=== PATIENT | male | born 1995 | race Two or more races ===

== ENCOUNTER 2018-07-17 17:02 | Emergency (ER) | payer SELFPAY ==
[2018-07-17 17:48] VITALS: BP 144/87; PULSE 87; TEMP 98.3; BMI 35.9
--- NOTE | 2018-07-17 18:21 | PDOC ---
History of Present Illness - General Chief Complaint: Sore Throat Stated Complaint: THROAT PAIN Time Seen by Provider: 07/17/18 17:56 History Source: Patient Exam Limitations: No Limitations Past History - Travel Traveled outside of the country in the last 30 days: No Close contact w/someone who was outside of country & ill: No - Past Medical History Allergies/Adverse Reactions: Allergies Allergy/AdvReac Type Severity Reaction Status Date / Time No Known Allergies Allergy Verified 07/17/18 17:30 Home Medications: Ambulatory Orders Cyclobenzaprine HCl [Flexeril -] 10 mg PO TID 07/17/18 Ibuprofen 400 mg PO ASDIR 07/17/18 Methylprednisolone [Medrol Dose Prosper] 4 mg PO ASDIR #21 tablet 07/17/18 COPD: No - Suicide/Smoking/Psychosocial Hx Smoking History: Never smoked Have you smoked in the past 12 months: No Information on smoking cessation initiated: No Hx Alcohol Use: No Drug/Substance Use Hx: No Review of Systems - Review of Systems Able to Perform ROS?: Yes Comments:: 07/17/18 19:12 CONSTITUTIONAL: Absent: fever, chills, diaphoresis, generalized weakness, malaise, loss of appetite HEENT: Present: sore throat Absent: rhinorrhea, nasal congestion, throat swelling, difficulty swallowing, mouth swelling, ear pain, eye pain, visual Changes CARDIOVASCULAR: Absent: chest pain, loss of consciousness, palpitations, irregular heart rate, peripheral edema RESPIRATORY: Absent: cough, shortness of breath, dyspnea with exertion, orthopnea, wheezing, stridor, hemoptysis GASTROINTESTINAL: Absent: abdominal pain, abdominal distension, nausea, vomiting, diarrhea, constipation, melena, hematochezia GENITOURINARY: Absent: dysuria, frequency, urgency, hesitancy, hematuria, flank pain, genital pain MUSCULOSKELETAL: Absent: myalgia, arthralgia, joint swelling SKIN: Absent: rash, itching, pallor HEMATOLOGIC/IMMUNOLOGIC: Absent: easy bleeding, easy bruising, lymphadenopathy, frequent infections ENDOCRINE: Absent: unexplained weight gain, unexplained weight loss, heat intolerance, cold intolerance NEUROLOGIC: Absent: headache, focal weakness or paresthesias, dizziness, unsteady gait, seizure, mental status changes, bladder or bowel incontinence PSYCHIATRIC: Absent: anxiety, depression, suicidal or homicidal ideation, hallucinations. Is the patient limited Frisian proficient: No *Physical Exam - Vital Signs Last Vital Signs Temp Pulse Resp BP Pulse Ox 98.3 F 87 16 144/87 100 07/17/18 17:27 07/17/18 17:27 07/17/18 17:27 07/17/18 17:27 07/17/18 17:27 - Physical Exam Comments: 07/17/18 19:12 GENERAL: Well developed, well nourished. Awake and alert. No acute distress. HEENT: Normocephalic, atraumatic. PERRLA, EOMI. No conjunctival pallor. Sclera are non- icteric. Moist mucous membranes. Oropharynx is clear. Uvula is midline, erythematous and edematous. NECK: Supple. Full ROM. No JVD. Carotid pulses 2+ and symmetric, without bruits. No thyromegaly. No lymphadenopathy. CARDIOVASCULAR: Regular rate and rhythm. No murmurs, rubs, or gallops. Distal pulses are 2+ and symmetric. PULMONARY: No evidence of respiratory distress. Lungs clear to auscultation bilaterally. No wheezing, rales or rhonchi. ABDOMINAL: Soft. Non-tender. Non-distended. No rebound or guarding. No organomegaly. Normoactive bowel sounds. MUSCULOSKELETAL Normal range of motion at all joints. No bony deformities or tenderness. No CVA tenderness. EXTREMITIES: No cyanosis. No clubbing. No edema. No calf tenderness. SKIN: Warm and dry. Normal capillary refill. No rashes. No jaundice. NEUROLOGICAL: Alert, awake, appropriate. Cranial nerves 2-12 intact. No deficits to light touch and temperature in face, upper extremities and lower extremities. No motor deficits in the in face, upper extremities and lower extremities. Normoreflexic in the upper and lower extremities. Normal speech. Toes are down- going bilaterally. Gait is normal without ataxia. PSYCHIATRIC: Cooperative. Good eye contact. Appropriate mood and affect. Medical Decision Making - Medical Decision Making 07/17/18 19:41 The patient is a 23-year-old male with no past medical history who presents to the ER with 2 days of sore throat. The patient states that he was seen yesterday at [facility] however the edges give him ibuprofen and sent him home. He states that hurts to swallow. Denies fevers, chills, nausea, vomiting, diarrhea and difficulty breathing. A/P: Sore throat On exam patient with clinical uvulitis. Rapid strep is negative. Decadron given with relief of symptoms. Discharge home with symptomatic relief. I discussed the physical exam findings, ancillary test results and final diagnoses with the patient. I answered all of the patient's questions. The patient was satisfied with the care received and felt comfortable with the discharge plan and treatment plan. The Patient agrees to follow up with the primary care physician/specialist within 24-72 hours. Return precautions were given. *DC/Admit/Observation/Transfer Diagnosis at time of Disposition: Uvulitis - Discharge Dispostion Disposition: HOME Condition at time of disposition: Stable Decision to Admit order: No - Prescriptions Prescriptions: Methylprednisolone [Medrol Dose Prosper] 4 mg PO ASDIR #21 tablet - Referrals Referrals: Jerrod Freedman MD [Staff Physician] - - Patient Instructions Printed Discharge Instructions: DI for Uvulitis Additional Instructions: You have a sore throat caused by uvulitis (inflammation of the uvula) Rapid strep testing was negative today. Take the medrol dose pack as prescribed You may take Motrin 600 mg every 6 hours as needed for pain. Please do warm water gargles and cough drops to help with your pain. Change your toothbrush when you started feeling better. Follow-up with your primary care doctor. Return to the ER for fever, difficulty breathing, difficulty swallowing, or if you have any changes in your symptoms. Tiene dolor de garganta causado por uvulitis (inflamacin de la vula) La prueba rpida de estreptococos fue negativa hoy. [place] el paquete de dosis de medrol segn lo prescrito Puede samina Motrin 600 mg cada 6 horas segn sea necesario para el dolor. Por favor, duncan grgaras de agua tibia y gotas para la tos para aliviar gaston dolor. Cambie gaston cepillo de dientes cuando empiece a sentirse mejor. Seguimiento con gaston mdico de atencin primaria. Regrese a la lu de emergencias para laura si tiene fiebre, dificultad para respirar, dificultad para tragar o si tiene algn cambio en sabine sntomas. Print Language: SPA - Post Discharge Activity Forms/Work/School Notes: Back to Work
[2018-07-17] MEDS ORDERED: DEXAMETHASONE LIQUID 0.5 MG/5 ML 240 ML BULK BOTTLE PO ONE (18:22)
[2018-07-17] MEDS ORDERED: DEXAMETHASONE SOD PHOSPHATE 10 MG/1 ML VIAL ONE (18:35)
== END 2018-07-17 19:17 | disposition home or self-care (01) ==
LOC: JERFT 17:02
DX: K12.2 Cellulitis and abscess of mouth (principal)
CPT/HCPCS: 87070; 87880; 99281-25

== ENCOUNTER 2018-10-25 00:19 | Emergency (ER) | payer SELFPAY ==
[2018-10-25 01:26] VITALS: BP 110/74; PULSE 75; TEMP 98.4; BMI 35.4
== END 2018-10-25 01:30 | disposition left against medical advice (07) ==
LOC: JER 00:19
DX: Z53.21 Procedure and treatment not carried out due to patient leaving prior to being seen by health care provider (principal)
CPT/HCPCS: 99281-25

== ENCOUNTER 2019-05-14 09:38 | Emergency (ER) | payer BC ==
[2019-05-14 09:44] VITALS: TEMP 99.7; BMI 41.1
[2019-05-14] MEDS ORDERED: LACTATED RINGERS SOLUTION 1,000 ML IV STA (10:24)
[2019-05-14] MEDS ORDERED: FAMOTIDINE 20 MG/50 ML IVPB 20 MG/50 ML MG IVPB ONE (10:24)
[2019-05-14] MEDS ORDERED: ACETAMINOPHEN 1000 MG/100 ML VIAL (NON FORMULARY) IVPB ONE (10:24)
[2019-05-14] MEDS ORDERED: ACETAMINOPHEN INJECTION 100 ML IVPB ONE (10:37)
[2019-05-14] MEDS ORDERED: MAG HYDROX/AL HYDROX/SIMETH 30 ML UNIT-DOSE CUP PO ONE (10:44)
--- NOTE | 2019-05-14 10:44 | PDOC ---
History of Present Illness - General History Source: Patient Exam Limitations: Clinical Condition - History of Present Illness Initial Comments: 05/14/19 10:39 Patient with no significant past medical history present with complaint of 1 day history of diarrhea and cramping diffuse abdominal pain since last night and worsening today. Patient also report body aches since yesterday. Denies fever but report tactile chills. Denies nausea, vomiting, cough, congestion, chest pain, shortness of breath or weakness. Denies any other symptoms Is this a multiple visit Asthma Patient?: No <Dominik Duckworth - Last Filed: 05/14/19 12:15> <Candace Madison - Last Filed: 05/15/19 10:19> - General Chief Complaint: Diarrhea Stated Complaint: ABD PAIN / DIARRHEA Time Seen by Provider: 05/14/19 10:08 Past History - Past Medical History COPD: No - Immunization History Immunization Up to Date: No - Psycho Social/Smoking Cessation Hx Smoking History: Never smoked Have you smoked in the past 12 months: No Information on smoking cessation initiated: No Hx Alcohol Use: No Drug/Substance Use Hx: No <Dominik Duckworth - Last Filed: 05/14/19 12:15> <Candace Madison - Last Filed: 05/15/19 10:19> - Past Medical History Allergies/Adverse Reactions: Allergies Allergy/AdvReac Type Severity Reaction Status Date / Time No Known Allergies Allergy Verified 10/25/18 01:26 Home Medications: Ambulatory Orders Famotidine [Pepcid -] 40 mg PO DAILY #7 tablet 05/14/19 Loperamide HCl [Diamode] 2 mg PO Q8H PRN #12 tablet 05/14/19 Mag Hydrox/Aluminum Hyd/Simeth [Maalox Advanced Suspension] 30 ml PO Q8H PRN # 200 ml 05/14/19 Review of Systems - Review of Systems Able to Perform ROS?: Yes Is the patient limited Citizen Of [place] proficient: No Constitutional: Yes: Chills, Malaise. No: Fever HEENTM: Yes: Symptoms Reported, See HPI, Throat Pain. No: Eye Pain, Blurred Vision, Tearing, Recent change in vision, Double Vision, Cataracts, Ear Pain, Ocular Prothesis, Ear Discharge, Nose Pain, Nose Congestion, Tinnitus, Nose Bleeding, Hearing Loss, Throat Swelling, Mouth Pain, Dental Problems, Difficulty Swallowing, Mouth Swelling, Other Respiratory: No: Symptoms reported, See HPI, Cough, Orthopnea, Shortness of Breath, SOB with Exertion, SOB at Rest, Stridor, Wheezing, Productive cough, Hemoptysis, Other Cardiac (ROS): No: Symptoms Reported, See HPI, Chest Pain, Edema, Irregular Heart Rate, Lightheadedness, Palpitations, Syncope, Chest Tightness, Other ABD/GI: Yes: Diarrhea, Abdominal cramping. No: Symptoms Reported, See HPI, Constipated, Nausea, Vomiting : No: Burning, Discharge, Frequency, Urgency All Other Systems: Reviewed and Negative <Dominik Duckworth - Last Filed: 05/14/19 12:15> *Physical Exam - Vital Signs Last Vital Signs Temp Pulse Resp BP Pulse Ox 99.7 F H 119 H 18 129/74 100 05/14/19 09:42 05/14/19 09:42 05/14/19 09:42 05/14/19 09:42 05/14/19 09:42 - Physical Exam 05/14/19 10:45 GENERAL: Well developed, well nourished. Awake and alert. No acute distress. HEENT: Normocephalic, atraumatic. PERRLA, EOMI. No conjunctival pallor. Sclera are non-icteric. Moist mucous membranes. Oropharynx is clear. NECK: Supple. Full ROM. CARDIOVASCULAR: Regular rate and rhythm. No murmurs, rubs, or gallops. Distal pulses are 2+ and symmetric. PULMONARY: No evidence of respiratory distress. Lungs clear to auscultation bilaterally. No wheezing, rales or rhonchi. ABDOMINAL: Soft. Mild diffuse subjective abdominal tenderness. Non-distended. No rebound or guarding. No organomegaly. Normoactive bowel sounds. MUSCULOSKELETAL Normal range of motion at all joints. SKIN: Warm and dry. Normal capillary refill. No rashes. No jaundice. No cyanosis NEUROLOGICAL: Alert, awake, appropriate. Gait is normal without ataxia. PSYCHIATRIC: Cooperative. Good eye contact. Appropriate mood General Appearance: Yes: Nourished, Appropriately Dressed. No: Apparent Distress <Dominik Duckworth - Last Filed: 05/14/19 12:15> - Vital Signs Last Vital Signs Temp Pulse Resp BP Pulse Ox 99.7 F H 104 H 17 126/77 100 05/14/19 09:42 05/14/19 12:25 05/14/19 12:25 05/14/19 12:25 05/14/19 09:42 <Candace Madison - Last Filed: 05/15/19 10:19> ED Treatment Course - LABORATORY CBC & Chemistry Diagram: 05/14/19 10:55 05/14/19 10:55 <Dominik Duckworth - Last Filed: 05/14/19 12:15> - LABORATORY CBC & Chemistry Diagram: 05/14/19 10:55 05/14/19 10:55 - ADDITIONAL ORDERS Additional order review: 05/14/19 12:19 Throat Culture - Final Throat NO BETA HEMOLYTIC STREPTOCOCCI ISOLATED 05/14/19 10:55 RBC 5.14 MCV 88.4 MCHC 33.7 RDW 14.1 MPV 8.2 Neutrophils % 84.4 H Lymphocytes % 10.1 Monocytes % 5.0 Eosinophils % 0.3 Basophils % 0.2 - Medications Given in the ED: ED Medications Discontinued Medications Generic Name Dose Route Start Last Admin Trade Name Naveed PRN Reason Stop Dose Admin Acetaminophen 1,000 mg 05/14/19 10:24 05/14/19 10:57 Ofirmev Injection - IVPB 05/14/19 10:25 1,000 mg ONCE ONE Administration Al Hydroxide/Mg Hydroxide 30 ml 05/14/19 10:44 05/14/19 11:11 Mylanta Oral Suspension - PO 05/14/19 10:45 30 ml ONCE ONE Administration Lactated Ringer's 1,000 mls @ 1,000 mls/hr 05/14/19 10:24 05/14/19 10:57 Lactated Ringers Solution IV 05/14/19 11:23 1,000 mls/hr ONCE STA Administration Famotidine/Sodium Chloride 20 mg in 50 mls @ 100 mls/hr 05/14/19 10:24 10:58 Pepcid 20 Mg Premixed Ivpb - IVPB 05/14/19 10:53 100 mls/hr ONCE ONE Administration <Candace Madison - Last Filed: 05/15/19 10:19> Medical Decision Making - Medical Decision Making 05/14/19 10:40 Patient with no significant past medical history present with complaint of 1 day history of diarrhea and cramping diffuse abdominal pain since last night and worsening today. Patient also report body aches since yesterday. Denies fever but report tactile chills. Denies nausea, vomiting, cough, congestion, chest pain, shortness of breath or weakness. Denies any other symptoms Clinical exam significant for diffuse subjective abdominal tenderness without guarding or rebound. Otherwise normal exam. Symptoms likely viral gastroenteritis versus less likely bacterial gastroenteritis or cholecystitis. CBC, CMP and lipase were ordered. IV hydration with 1 L normal saline ordered and Pepcid 20 mg IV and Tylenol 1 g IV ordered for abdominal pain. Treat based on lab results 05/14/19 12:15 cbc and chemistry labs unremarkable. Patient report feeling better after meds and IVF. Patient symptoms likely viral gastroenteritis and stable for outpatient management on conservative tx with increased fluids, pepcid and maalox with PCP f/u <Dominik Duckworth - Last Filed: 05/14/19 12:15> - Medical Decision Making I reviewed the case with the mid-level practitioner and agree with the mid- level practitioner's assessment, diagnosis and disposition. <Candace Madison - Last Filed: 05/15/19 10:19> Discharge - Discharge Information Problems reviewed: Yes - Admission No <Dominik Duckworth - Last Filed: 05/14/19 12:15> <Candace Madison - Last Filed: 05/15/19 10:19> - Discharge Information Clinical Impression/Diagnosis: Gastroenteritis Condition: Stable Disposition: HOME - Additional Discharge Information Prescriptions: Famotidine [Pepcid -] 40 mg PO DAILY #7 tablet Loperamide HCl [Diamode] 2 mg PO Q8H PRN #12 tablet PRN Reason: diarrhea Mag Hydrox/Aluminum Hyd/Simeth [Maalox Advanced Suspension] 30 ml PO Q8H PRN # 200 ml PRN Reason: abdominal discomfort - Follow up/Referral Referrals: [facility] [place] [Provider Group] - Patient Discharge Instructions Patient Printed Discharge Instructions: DI for Viral Gastroenteritis -- Adult Additional Instructions: Your blood work is normal. Your symptoms is likely viral infection. Take prescribed medications as prescribed for symptoms. Increase fluid intake. Follow -up with referred primary care - Post Discharge Activity Work/Back to School Note: Back to Work
[2019-05-14 11:07] LABS: BASO % 0.2 % (0-2.0); EOS % 0.3 % (0-4.5); HEMATOCRIT 45.4 % (35.4-49); HEMOGLOBIN 15.3 GM/dL (11.7-16.9); LYMPH % 10.1 % (8-40); MCH 29.8 pg (25.7-33.7); MCHC 33.7 g/dl (32.0-35.9); MEAN CELL VOLUME 88.4 fl (80-96); MEAN PLT VOLUME 8.2 fl (7.5-11.1); NEUT % 84.4 % (42.8-82.8); PLATELET COUNT 198 K/MM3 (134-434); RBC 5.14 M/mm3 (4.00-5.60); RDW 14.1 % (11.9-15.9); WHITE BLOOD COUNT 8.9 K/mm3 (4.0-10.0)
[2019-05-14] MEDS ORDERED: MAG HYDROX/AL HYDROX/SIMETH 30 ML UNIT-DOSE CUP ONE (11:09)
[2019-05-14 11:10] LABS: URINE APPEARANCE CLEAR; URINE BILIRUBIN NEGATIVE (NEGATIVE); URINE COLOR YELLOW; URINE GLUCOSE (UA) NEGATIVE (NEGATIVE); URINE KETONE NEGATIVE (NEGATIVE); URINE LEUK ESTERASE NEGATIVE (NEGATIVE); URINE NITRITE NEGATIVE (NEGATIVE); URINE PROTEIN NEGATIVE (NEGATIVE)
[2019-05-14 11:27] LABS: ALBUMIN 4.2 g/dl (3.4-5.0); BILIRUBIN,TOTAL 0.9 mg/dL (0.2-1); BLOOD UREA NITROGEN 16.3 mg/dL (7-18); CALCIUM 9.3 mg/dL (8.5-10.1); CREATININE 1.1 mg/dL (0.55-1.3); POTASSIUM 3.8 mmol/L (3.5-5.1); TOT PROT 7.8 g/dl (6.4-8.2)
[2019-05-14 12:29] VITALS: BP 126/77; PULSE 104
== END 2019-05-14 12:26 | disposition home or self-care (01) ==
LOC: JER 09:38
PROC: 3E033GC Introduction of Other Therapeutic Substance into Peripheral Vein, Percutaneous Approach (ICD-10-PCS; principal; 2019-05-14)
PROC: 3E033NZ Introduction of Analgesics, Hypnotics, Sedatives into Peripheral Vein, Percutaneous Approach (ICD-10-PCS; 2019-05-14)
DX: K52.9 Noninfective gastroenteritis and colitis, unspecified (principal)
CPT/HCPCS: 36415; 80053; 81003; 83690; 85025; 87070; 87880; 99282-25; J0131

== ENCOUNTER 2019-06-20 07:58 | Emergency (ER) | payer BC ==
[2019-06-20 08:25] VITALS: BP 146/74; PULSE 105; TEMP 97.8; BMI 36.0
[2019-06-20] MEDS ORDERED: DIPHTH,PERTUSS(ACELL),TET 0.5 ML DISP.SYRIN IM ONE ×2 (08:28→08:31)
[2019-06-20] MEDS ORDERED: IBUPROFEN 600 MG TABLET (FP) PO ONE ×2 (08:28→08:31)
--- NOTE | 2019-06-20 08:35 | PDOC ---
History of Present Illness - General Chief Complaint: Injury Stated Complaint: HAND INJURY Time Seen by Provider: 06/20/19 08:14 History Source: Patient Exam Limitations: No Limitations - History of Present Illness Initial Comments: 06/20/19 08:30 24-year-old male denies past medical history, [id number] presents complaining of left hand and bilateral forearm pain status post slip and fall in a bathroom at approximately 5 AM today. States he slipped on wet floor and fell onto a glass table which shattered. Denies head strike, LOC, neck pain, chest pain, abdominal pain or any other injuries. Unknown tetanus status. ROS: as above PE: GENERAL: well-appearing, NAD HEAD: NCAT EYES: Pupils equal, round and reactive to light, sclera anicteric, conjunctiva clear ENT: pharynx: no erythema, no exudate, uvula midline NECK: supple CHEST: nontender RESP: clear, no w/r/r CARDIO: rrr, no m/g/r ABD: +BS, soft, nontender, non distended BACK: no midline spinal ttp, no CVAT EXTREMITIES: Swelling to bilateral forearm with abrasions, no bony tenderness to palpation, no ecchymosis noted, normal range of motion, no edema NEUROLOGICAL: Normal speech, normal gait, 5/5 strength and sensation of all extremities SKIN: Approximately 1.5 cm superficial laceration to second MCP of left hand, no active bleeding, positive radial pulse, warm, Dry Is this a multiple visit Asthma Patient?: No Past History - Past Medical History Allergies/Adverse Reactions: Allergies Allergy/AdvReac Type Severity Reaction Status Date / Time No Known Allergies Allergy Verified 06/20/19 08:10 Home Medications: Ambulatory Orders NK [No Known Home Medication] 06/20/19 COPD: No - Immunization History Immunization Up to Date: No - Psycho Social/Smoking Cessation Hx Smoking History: Never smoked Have you smoked in the past 12 months: No Information on smoking cessation initiated: No Hx Alcohol Use: No Drug/Substance Use Hx: No *Physical Exam - Vital Signs Last Vital Signs Temp Pulse Resp BP Pulse Ox 97.8 F 105 H 17 146/74 99 06/20/19 08:10 06/20/19 08:10 06/20/19 08:10 06/20/19 08:10 06/20/19 08:10 ED Treatment Course - RADIOLOGY Radiology Studies Ordered: Category Date Time Status FOREARM- LEFT [RAD] Stat Radiology 06/20/19 08:27 Ordered FOREARM- RIGHT [RAD] Stat Radiology 06/20/19 08:27 Ordered HAND- LEFT [RAD] Stat Radiology 06/20/19 08:27 Ordered Medical Decision Making - Medical Decision Making 06/20/19 08:34 24-year-old male with lateral forearm pain and laceration to left 2nd MCP status post slip and fall in the bathroom at approximately 5 AM today. Unknown tetanus status. Tetanus X-rays of bilateral forearms and left hand P.o. ibuprofen Laceration repaired by Dr. Hogue 06/20/19 10:15 Discharge - Discharge Information Problems reviewed: Yes Clinical Impression/Diagnosis: Laceration Condition: Stable Disposition: HOME - Admission No - Follow up/Referral - Patient Discharge Instructions Additional Instructions: Keep area clean and dry Apply bacitracin twice a day Return to ER or follow-up with your doctor in 7 days for suture removal If you develop fever, chills, redness, swelling, increasing pain return to ED - Post Discharge Activity Work/Back to School Note: Back to Work
== END 2019-06-20 10:20 | disposition home or self-care (01) ==
LOC: JER 07:58 → JERFT 07:58
PROC: 3E0234Z Introduction of Serum, Toxoid and Vaccine into Muscle, Percutaneous Approach (ICD-10-PCS; principal; 2019-06-20)
PROC: 0HQGXZZ Repair Left Hand Skin, External Approach (ICD-10-PCS; 2019-06-20)
DX: S61.412A Laceration without foreign body of left hand, initial encounter (principal); W01.110A Fall on same level from slipping, tripping and stumbling with subsequent striking against sharp glass, initial encounter; Y93.89 Activity, other specified; Y92.031 Bathroom in apartment as the place of occurrence of the external cause; Y99.8 Other external cause status
CPT/HCPCS: 73090-TC-LT-FY; 73090-TC-RT-FY; 73130-TC-LT-FY; 90715; 99283-25

== ENCOUNTER 2019-06-27 13:21 | Emergency (ER) | payer BC ==
[2019-06-27 13:54] VITALS: BP 119/74; PULSE 71; TEMP 97.2; BMI 36.0
--- NOTE | 2019-06-27 14:05 | PDOC ---
Suture Removal/Wound Check HPI - History of Present Illness Chief Complaint: Suture/Staple Removal(Here) Stated Complaint: SUTURE REMOVAL Time Seen by Provider: 06/27/19 13:56 History Source: Yes: Patient Exam Limitations: Yes: No Limitations Date of Last ED visit: 06/20/19 - Previous ED Treatment Type of procedure performed on last visit: Yes: Laceration Repair Tetanus Immunization: Yes: Up to Date Antibiotics Prescribed: No - Onset of Previous Treatment Option to Enter number here: 1 Select one - (for the option above): Weeks Timing/Duration/Severity of Onset: reports: Prior to presentation Past History - Travel Traveled outside of the country in the last 30 days: No Close contact w/someone who was outside of country & ill: No - Past Medical History Allergies/Adverse Reactions: Allergies Allergy/AdvReac Type Severity Reaction Status Date / Time No Known Allergies Allergy Verified 06/20/19 08:10 Home Medications: Ambulatory Orders NK [No Known Home Medication] 06/20/19 COPD: No - Immunization History Immunization Up to Date: No - Psycho Social/Smoking Cessation Hx Smoking History: Never smoked Have you smoked in the past 12 months: No Information on smoking cessation initiated: No Hx Alcohol Use: No Drug/Substance Use Hx: No Suture Removal/Wound Check PE - Physical Exam Laceration/Wound Check Symptoms: reports: None Current Severity Level: None Maximum Severity Level: None Pain Localization: None Location of Laceration/Wound: right: Hand Pain Radiation: None *Review of Systems - Review of Systems Able to Perform ROS?: Yes Constitutional: No: Chills, Fever HEENTM: No: Nose Pain, Throat Pain, Throat Swelling Respiratory: No: Orthopnea, Shortness of Breath Cardiac (ROS): No: Lightheadedness, Palpitations : No: Burning, Dysuria Musculoskeletal: No: Joint Pain, Muscle Pain, Muscle Weakness Integumentary: No: Bruising, Dryness, Flushing Neurological: No: Numbness, Paresthesia Psychiatric: No: Stressors Endocrine: No: Increased Hunger *Physical Exam - Vital Signs Last Vital Signs Temp Pulse Resp BP Pulse Ox 97.2 F L 71 16 119/74 100 06/27/19 13:50 06/27/19 13:50 06/27/19 13:50 06/27/19 13:50 06/27/19 13:50 - Physical Exam General Appearance: Yes: Nourished, Appropriately Dressed HEENT: positive: TMs Normal, Pharynx Normal Neck: positive: Supple. negative: Lymphadenopathy (R), Lymphadenopathy (L) Respiratory/Chest: positive: Lungs Clear Cardiovascular: positive: Regular Rhythm, Regular Rate Extremity: positive: Normal Capillary Refill Neurologic: positive: enterprise architect II-XII NML intact, Fully Oriented, Alert Medical Decision Making - Medical Decision Making 06/27/19 14:03 24 year old male presents with no significant medical history, surgical history of lip surgery. Patient here for suture removal. Denies fever or chills Discharge - Discharge Information Problems reviewed: Yes Clinical Impression/Diagnosis: Visit for suture removal Condition: Good Disposition: HOME - Admission No - Follow up/Referral - Patient Discharge Instructions Patient Printed Discharge Instructions: DI for Suture Removal - Post Discharge Activity Work/Back to School Note: Back to Work
== END 2019-06-27 14:16 | disposition home or self-care (01) ==
LOC: JERFT 13:21
DX: Z48.817 Encounter for surgical aftercare following surgery on the skin and subcutaneous tissue (principal); Z48.02 Encounter for removal of sutures
CPT/HCPCS: 99281-25

== ENCOUNTER 2020-06-19 15:31 | Emergency (ER) | payer BC ==
[2020-06-19 15:40] VITALS: BP 134/85; PULSE 100; TEMP 98; BMI 38.4
== END 2020-06-19 18:30 | disposition home or self-care (01) ==
LOC: JER 15:31
DX: K62.5 Hemorrhage of anus and rectum (principal); K64.8 Other hemorrhoids; K59.00 Constipation, unspecified
CPT/HCPCS: 99283-25

== ENCOUNTER 2020-09-19 09:27 | Emergency (ER) | payer BC ==
[2020-09-19 09:34] VITALS: BP 113/74; PULSE 79; TEMP 98.5; BMI 36.0
== END 2020-09-19 11:01 | disposition home or self-care (01) ==
LOC: JERFT 09:27
PROC: 0H9AXZZ Drainage of Inguinal Skin, External Approach (ICD-10-PCS; principal; 2020-09-19)
DX: L02.214 Cutaneous abscess of groin (principal)
CPT/HCPCS: 99282-25

== ENCOUNTER 2020-12-26 09:10 | Emergency (ER) | payer BC ==
[2020-12-26 09:28] VITALS: BP 135/84; PULSE 70; TEMP 98.4; BMI 38.7
== END 2020-12-26 10:53 | disposition home or self-care (01) ==
LOC: JER 09:10
PROC: 0H9KXZZ Drainage of Right Lower Leg Skin, External Approach (ICD-10-PCS; principal; 2020-12-26)
DX: L02.415 Cutaneous abscess of right lower limb (principal)
CPT/HCPCS: 99282-25

== ENCOUNTER 2021-09-22 18:40 | Emergency (ER) | payer BC, OTHER ==
[2021-09-22 18:44] VITALS: BP 106/70; PULSE 84; TEMP 98; BMI 36.0
[2021-09-22] MEDS ORDERED: FAMOTIDINE 20 MG/50 ML IVPB 20 MG/50 ML MG IVPB ONE ×2 (20:23→20:42)
[2021-09-22] MEDS ORDERED: MAG HYDROX/AL HYDROX/SIMETH 30 ML UNIT-DOSE CUP PO ONE (20:23)
[2021-09-22] MEDS ORDERED: SUCRALFATE 1 GM/10 ML UNIT DOSE CUPS PO ONE (20:24)
[2021-09-22] MEDS ORDERED: MAG HYDROX/AL HYDROX/SIMETH 30 ML UNIT-DOSE CUP ONE (20:42)
[2021-09-22 21:19] LABS: BASO % 0.2 % (0-2.0); EOS % 0.1 % (0-4.5); HEMATOCRIT 42.7 % (35.4-49); HEMOGLOBIN 14.6 GM/dL (11.7-16.9); LYMPH % 17.6 % (8-40); MCH 30.1 pg (25.7-33.7); MCHC 34.2 g/dl (32.0-35.9); MEAN CELL VOLUME 88.1 fl (80-96); MEAN PLT VOLUME 8.7 fl (7.5-11.1); MONO % 6.5 % (3.8-10.2); NEUT % 75.6 % (42.8-82.8); PLATELET COUNT 221 10^3/uL (134-434); RBC 4.85 M/mm3 (4.00-5.60); RDW 14.2 % (11.9-15.9); WHITE BLOOD COUNT 10.1 K/mm3 (4.0-10.0)
[2021-09-22 21:46] LABS: ALBUMIN 4.1 g/dl (3.4-5.0); BLOOD UREA NITROGEN 15.5 mg/dL (7-18)
[2021-09-22 21:51] LABS: BILIRUBIN,TOTAL 0.7 mg/dL (0.2-1); TOT PROT 7.6 g/dl (6.4-8.2)
== END 2021-09-23 00:17 | disposition home or self-care (01) ==
LOC: JER 18:40
PROC: 3E033GC Introduction of Other Therapeutic Substance into Peripheral Vein, Percutaneous Approach (ICD-10-PCS; principal; 2021-09-22)
DX: R10.13 Epigastric pain (principal); R74.01 Elevation of levels of liver transaminase levels; R16.0 Hepatomegaly, not elsewhere classified
CPT/HCPCS: 36415; 76705-TC; 80053; 83690; 85025; 93005; 93010; 99285-25

== ENCOUNTER 2021-09-24 10:02 | Inpatient (IN) | payer BC ==
[2021-09-24] MEDS ORDERED: MAG HYDROX/AL HYDROX/SIMETH 30 ML UNIT-DOSE CUP PO ONE (10:57)
[2021-09-24] MEDS ORDERED: PANTOPRAZOLE SODIUM 40 MG VIAL IVPUSH ONE (10:57)
[2021-09-24] MEDS ORDERED: morphine CARPU-JECT 2 MG/1 ML DISP.SYRIN IVPUSH ONE (10:57)
[2021-09-24] MEDS ORDERED: ONDANSETRON 4 MG/2 ML VIAL IVPUSH ONE (10:59)
[2021-09-24] MEDS ORDERED: MAG HYDROX/AL HYDROX/SIMETH 30 ML UNIT-DOSE CUP ONE (11:23)
[2021-09-24] MEDS ORDERED: ONDANSETRON 4 MG/2 ML VIAL ONE (11:23)
[2021-09-24] MEDS ORDERED: PANTOPRAZOLE SODIUM 40 MG/100 ML BAG IVPB ONE (11:28)
[2021-09-24 12:49] LABS: BASO % 0.5 % (0-2.0); EOS % 1.5 % (0-4.5); HEMATOCRIT 42.8 % (35.4-49); HEMOGLOBIN 14.4 GM/dL (11.7-16.9); MCH 29.9 pg (25.7-33.7); MCHC 33.5 g/dl (32.0-35.9); PLATELET COUNT 222 10^3/uL (134-434); RBC 4.81 M/mm3 (4.00-5.60); RDW 14.3 % (11.9-15.9)
[2021-09-24 13:03] LABS: ALBUMIN 3.8 g/dl (3.4-5.0); BLOOD UREA NITROGEN 15.3 mg/dL (7-18); CALCIUM 8.8 mg/dL (8.5-10.1)
[2021-09-24 13:07] LABS: BILIRUBIN,TOTAL 0.5 mg/dL (0.2-1)
[2021-09-24 13:08] LABS: TOT PROT 7.3 g/dl (6.4-8.2)
[2021-09-24] MEDS ORDERED: SODIUM CHLORIDE 1,000 ML IV SCH (14:45)
[2021-09-24 18:29] VITALS: BMI 38.4
[2021-09-24] MEDS: HEPARIN NA (PORCINE) 5,000 UNITS/ML 1ML VIAL SQ SCH (21:11)
[2021-09-25] MEDS: HEPARIN NA (PORCINE) 5,000 UNITS/ML 1ML VIAL SQ SCH ×3 (06:13→22:24)
[2021-09-25 09:23] LABS: BASO % 0.4 % (0-2.0); EOS % 1.1 % (0-4.5); HEMATOCRIT 40.3 % (35.4-49); HEMOGLOBIN 13.6 GM/dL (11.7-16.9); LYMPH % 40.7 % (8-40); MCH 29.7 pg (25.7-33.7); MCHC 33.7 g/dl (32.0-35.9); MEAN PLT VOLUME 8.8 fl (7.5-11.1); MONO % 6.7 % (3.8-10.2); NEUT % 51.1 % (42.8-82.8); PLATELET COUNT 197 10^3/uL (134-434); RBC 4.58 M/mm3 (4.00-5.60)
[2021-09-25 09:25] LABS: ACTIVATED PTT 34.7 SECONDS (25.2-36.5); INR 1.14 (0.83-1.09); PROTHROMBIN TIME (PATIENT) 13.1 SEC (9.7-13.0)
[2021-09-25 09:59] LABS: CALCIUM 8.6 mg/dL (8.5-10.1)
[2021-09-25 10:00] LABS: ALBUMIN 3.4 g/dl (3.4-5.0); BLOOD UREA NITROGEN 13.1 mg/dL (7-18); MAGNESIUM 2.1 mg/dL (1.8-2.4)
[2021-09-25 10:03] LABS: CREATININE 0.9 mg/dL (0.55-1.3); PHOSPHOROUS 3.3 mg/dL (2.5-4.9)
[2021-09-25 10:04] LABS: BILIRUBIN,TOTAL 0.8 mg/dL (0.2-1); TOT PROT 6.4 g/dl (6.4-8.2)
[2021-09-25] MEDS ORDERED: KETOROLAC TROMETHAMINE 30 MG/1 ML VIAL ONE (12:42)
[2021-09-25] MEDS ORDERED: SUCCINYLCHOLINE CHLORIDE 200 MG/10 ML SYRINGE ONE (12:42)
[2021-09-25] MEDS ORDERED: ONDANSETRON 4 MG/2 ML VIAL ONE (12:42)
[2021-09-25] MEDS ORDERED: PROPOFOL 20 ML ONE (12:42)
[2021-09-25] MEDS ORDERED: LIDOCAINE HCL 2% 100 MG/5 ML DISP.SYRIN ONE (12:42)
[2021-09-25] MEDS ORDERED: DEXAMETHASONE SOD PHOSPHATE 4 MG/1 ML VIAL ONE (12:42)
[2021-09-25] MEDS ORDERED: ROCURONIUM BROMIDE 50 MG/5 ML SYRINGE ONE (12:43)
[2021-09-25] MEDS ORDERED: MIDAZOLAM HCL 2 MG/2 ML SINGLE DOSE VIAL ONE (12:43)
[2021-09-25] MEDS ORDERED: BUPIVACAINE HCL/PF 0.25% (2.5MG/ML) 10 ML VIAL ONE (13:03)
[2021-09-25] MEDS ORDERED: ceFAZolin SODIUM 1 GM VIAL ONE (14:08)
[2021-09-25] MEDS ORDERED: ceFAZolin SODIUM 1 GM VIAL IVPB ONE (14:10)
[2021-09-25] MEDS ORDERED: BUPIVACAINE HCL/PF 0.25% (2.5MG/ML) 10 ML VIAL IJ ONE (14:32)
[2021-09-25] MEDS ORDERED: PROMETHAZINE HCL 25 MG/1 ML VIAL IVPUSH PRN (15:25)
[2021-09-25] MEDS ORDERED: ONDANSETRON 4 MG/2 ML VIAL IVPUSH PRN ×2 (15:25→15:47)
[2021-09-25] MEDS ORDERED: oxyCODONE HCL 5 MG TABLET PO PRN ×2 (15:25)
[2021-09-25] MEDS ORDERED: HYDROmorphone HCl 2 MG/ML VIAL IVPUSH PRN ×2 (15:26)
[2021-09-25] MEDS ORDERED: LACTATED RINGERS SOLUTION 1,000 ML IV SCH (15:30)
[2021-09-25] MEDS ORDERED: FENTANYL CITRATE/PF 50 MCG/ML VIAL ONE ×4 (15:30→16:30)
[2021-09-25] MEDS: LACTATED RINGERS SOLUTION 1,000 ML IV SCH (17:05)
[2021-09-25] MEDS: ACETAMINOPHEN 500 MG TABLET (FP) PO SCH (18:47)
[2021-09-25] MEDS: oxyCODONE HCL 5 MG TABLET PO PRN (20:46)
[2021-09-25] MEDS ORDERED: KETOROLAC TROMETHAMINE 30 MG/1 ML VIAL IVPUSH PRN (23:00)
[2021-09-26] MEDS: ACETAMINOPHEN 500 MG TABLET (FP) PO SCH ×3 (00:08→13:30)
[2021-09-26] MEDS: HEPARIN NA (PORCINE) 5,000 UNITS/ML 1ML VIAL SQ SCH ×2 (05:13→15:00)
[2021-09-26] MEDS: oxyCODONE HCL 5 MG TABLET PO PRN ×2 (05:22→16:16)
[2021-09-26 09:48] LABS: HEMATOCRIT 40.6 % (35.4-49); HEMOGLOBIN 13.8 GM/dL (11.7-16.9); MCH 29.9 pg (25.7-33.7); PLATELET COUNT 210 10^3/uL (134-434); RBC 4.62 M/mm3 (4.00-5.60); RDW 13.8 % (11.9-15.9); WHITE BLOOD COUNT 8.7 K/mm3 (4.0-10.0)
[2021-09-26 09:53] LABS: BLOOD UREA NITROGEN 9.4 mg/dL (7-18); CALCIUM 8.9 mg/dL (8.5-10.1)
[2021-09-26 09:54] LABS: ALBUMIN 3.4 g/dl (3.4-5.0)
[2021-09-26 09:57] LABS: CREATININE 0.9 mg/dL (0.55-1.3)
[2021-09-26 09:58] LABS: BILIRUBIN,TOTAL 0.8 mg/dL (0.2-1); TOT PROT 6.5 g/dl (6.4-8.2)
[2021-09-26] MEDS ORDERED: ACETAMINOPHEN 500 MG TABLET (FP) PO SCH (13:30)
[2021-09-26 15:41] VITALS: BP 146/76; PULSE 89; TEMP 98.7
[2021-09-26] MEDS: LACTATED RINGERS SOLUTION 1,000 ML IV SCH (16:17)
== END 2021-09-26 19:08 | disposition home or self-care (01) | DRG 419 ==
LOC: JERFT 10:02 → JER 10:02 → JERBED 14:07 → J8W 17:19
PROVIDERS: ADMIT Internal Medicine; ATTEND Internal Medicine
PROC: 0FT44ZZ Resection of Gallbladder, Percutaneous Endoscopic Approach (ICD-10-PCS; principal; 2021-09-25 13:00)
DX: K81.0 Acute cholecystitis (principal)
CPT/HCPCS: 0241U-QW; 36415; 74181-TC; 76705-TC; 80053; 83690; 83735; 84100; 85025; 85027; 85610; 85730; 86850; 86900; 86901; 88304-TC; 93005; 93010; 94010; 94760; 99285-25; J1644

== ENCOUNTER 2022-05-16 19:27 | Emergency (ER) | payer BC ==
[2022-05-16 19:33] VITALS: BMI 36.9
[2022-05-16] MEDS ORDERED: METOCLOPRAMIDE HCL INJECTION 10 MG/2 ML VIAL IVPB ONE (21:35)
[2022-05-16] MEDS ORDERED: METOCLOPRAMIDE HCL INJECTION 10 MG/2 ML VIAL ONE (21:37)
[2022-05-16 21:58] LABS: BASO % 1.7 % (0-2.0); EOS % 1.6 % (0-4.5); HEMATOCRIT 43.1 % (35.4-49); HEMOGLOBIN 14.3 GM/dL (11.7-16.9); LYMPH % 24.6 % (8-40); MCH 29.6 pg (25.7-33.7); MCHC 33.3 g/dl (32.0-35.9); MEAN CELL VOLUME 88.8 fl (80-96); MEAN PLT VOLUME 9.6 fl (7.5-11.1); MONO % 4.1 % (3.8-10.2); PLATELET COUNT 253 10^3/uL (134-434); RBC 4.85 M/mm3 (4.00-5.60); RDW 14.4 % (11.9-15.9); WHITE BLOOD COUNT 9.1 K/mm3 (4.0-10.0)
[2022-05-16 22:06] LABS: INR 1.06 (0.83-1.09); PROTHROMBIN TIME (PATIENT) 12.2 SEC (9.7-13.0)
[2022-05-16 22:10] LABS: CALCIUM 9.2 mg/dL (8.5-10.1)
[2022-05-16 22:11] LABS: ALBUMIN 4.1 g/dl (3.4-5.0)
[2022-05-16 22:15] LABS: CREATININE 1.1 mg/dL (0.55-1.3)
[2022-05-16 22:16] LABS: BILIRUBIN,TOTAL 0.3 mg/dL (0.2-1); TOT PROT 7.4 g/dl (6.4-8.2)
[2022-05-17 01:00] VITALS: BP 115/76; PULSE 82; RESP 16; TEMP 98.1
== END 2022-05-17 01:00 | disposition home or self-care (01) ==
LOC: JER 19:27
PROC: 3E033GC Introduction of Other Therapeutic Substance into Peripheral Vein, Percutaneous Approach (ICD-10-PCS; principal; 2022-05-16)
DX: R42 Dizziness and giddiness (principal)
CPT/HCPCS: 36415; 70450-TC; 80053; 82962; 85025; 85610; 99284-25

== ENCOUNTER 2022-09-28 13:58 | Emergency (ER) | payer BC ==
[2022-09-28 14:03] VITALS: BMI 36.1
[2022-09-28] MEDS ORDERED: ACETAMINOPHEN 500 MG TABLET (FP) PO ONE (14:43)
[2022-09-28] MEDS ORDERED: ACETAMINOPHEN 500 MG TABLET (FP) ONE (14:59)
[2022-09-28 16:41] VITALS: BP 110/78; PULSE 88; RESP 19; TEMP 97.9
== END 2022-09-28 16:52 | disposition short-term general hospital (02) ==
LOC: JERFT 13:58 → JER 13:58 → JERFT 16:52
DX: H57.11 Ocular pain, right eye (principal)
CPT/HCPCS: 70450-TC; 99285-25

== ENCOUNTER 2023-12-31 21:06 | Emergency (ER) | payer SELFPAY ==
[2023-12-31 21:12] VITALS: BMI 36.1
[2023-12-31 23:16] VITALS: BP 107/51; PULSE 80; RESP 18; TEMP 98.2
== END 2023-12-31 23:16 | disposition home or self-care (01) ==
LOC: JER 21:06
DX: R42 Dizziness and giddiness (principal); T40.715A Adverse effect of cannabis, initial encounter
CPT/HCPCS: 99282-25

== ENCOUNTER 2024-02-23 18:37 | Emergency (ER) | payer SELFPAY ==
[2024-02-23 18:47] VITALS: BP 118/72; PULSE 80; RESP 20; TEMP 97.6; BMI 38.7
[2024-02-23] MEDS: IBUPROFEN 400 MG TABLET (FP) PO ONE (19:46)
[2024-02-23] MEDS: SULFAMETHOXAZOLE/TRIMETHOPRIM 800MG/160MG D.S. TABLET PO ONE (19:46)
== END 2024-02-23 19:49 | disposition home or self-care (01) ==
LOC: JERFT 18:37
DX: L60.0 Ingrowing nail (principal)
CPT/HCPCS: 99283-25

== ENCOUNTER 2024-09-13 07:45 | Emergency (ER) | payer SELFPAY ==
[2024-09-13 07:52] VITALS: BP 138/85; PULSE 87; RESP 20; TEMP 98.4; BMI 42.5
== END 2024-09-13 09:16 | disposition home or self-care (01) ==
LOC: JER 07:45
DX: K64.8 Other hemorrhoids (principal); K60.2 Anal fissure, unspecified
CPT/HCPCS: 99283-25

== ENCOUNTER 2024-09-20 22:49 | Inpatient (IN) | payer BC ==
[2024-09-20] MEDS ORDERED: FAMOTIDINE 20 MG/50 ML IVPB 20 MG/50 ML MG IVPB ONE (23:46)
[2024-09-20] MEDS ORDERED: ONDANSETRON 4 MG/2 ML VIAL ONE (23:46)
[2024-09-20] MEDS ORDERED: morphine SULFATE 4 MG/ML VIAL ONE (23:46)
[2024-09-20] MEDS: morphine CARPU-JECT 4 MG/1 ML DISP.SYRIN IVPUSH ONE (23:57)
[2024-09-20] MEDS: FAMOTIDINE 20 MG/50 ML IVPB 20 MG/50 ML MG IVPB ONE (23:57)
[2024-09-20] MEDS: SODIUM CHLORIDE 1,000 ML IV STA (23:57)
[2024-09-20] MEDS: ONDANSETRON 4 MG/2 ML VIAL IVPUSH ONE (23:57)
[2024-09-21 00:02] LABS: ABSOLUTE IMMATURE GRANULOCYTES 0.05 x10^3/uL (0.0-0.031); BASOPHILS # 0.03 x10^3/uL (0.01-0.08); EOSINOPHIL % 1.4 % (0.8-7.0); EOSINOPHILS # 0.11 x10^3/uL (0.04-0.54); HEMATOCRIT 43.8 % (40.1-51.0); HEMOGLOBIN 14.3 g/dL (13.7-17.5); MCHC 32.6 g/dl (32.3-36.5); MEAN CELL VOLUME 89.9 fl (79.0-92.2); MONOCYTE # 0.54 x10^3/uL (0.30-0.82); MONOCYTE % 6.9 % (5.3-12.2); PLATELET COUNT 238 x10^3/uL (163-337); RDW 13.7 % (12.0-15.6)
[2024-09-21 00:17] LABS: POTASSIUM 4.1 mmol/L (3.5-5.1)
[2024-09-21 00:19] LABS: CALCIUM 9.1 mg/dL (8.5-10.1)
[2024-09-21 00:20] LABS: ALBUMIN 4.1 g/dl (3.4-5.0); BLOOD UREA NITROGEN 12.8 mg/dL (7-18)
[2024-09-21 00:23] LABS: CREATININE 1.1 mg/dL (0.55-1.3)
[2024-09-21 00:24] LABS: BILIRUBIN,TOTAL 2.1 mg/dL (0.2-1)
[2024-09-21 00:25] LABS: TOT PROT 7.4 g/dl (6.4-8.2)
[2024-09-21 01:55] LABS: EPI CELLS 1 /uL (0-25.1); HYALINE CASTS 0 /uL (0-3.1); URINE APPEARANCE CLEAR; URINE BACTERIA 17 /uL (0-1359); URINE BILIRUBIN 2+ (NEGATIVE); URINE COLOR DK YELLOW; URINE GLUCOSE (UA) NEGATIVE (NEGATIVE); URINE KETONE TRACE (NEGATIVE); URINE LEUK ESTERASE TRACE (NEGATIVE); URINE NITRITE NEGATIVE (NEGATIVE); URINE PROTEIN TRACE (NEGATIVE); URINE RBC 4 /uL (0-23.9); URINE WBC 5 /uL (0-25.8)
[2024-09-21] MEDS ORDERED: MORPHINE SULFATE 2 MG/ML SYRINGE IVPUSH PRN (02:22)
[2024-09-21] MEDS ORDERED: ONDANSETRON 4 MG/2 ML VIAL IVPUSH PRN (02:22)
[2024-09-21] MEDS: SODIUM CHLORIDE 1,000 ML IV SCH (02:32)
[2024-09-21] MEDS ORDERED: morphine SULFATE 4 MG/ML VIAL ONE (03:13)
[2024-09-21] MEDS: morphine CARPU-JECT 4 MG/1 ML DISP.SYRIN IVPUSH ONE (03:20)
[2024-09-21] MEDS: TAMSULOSIN HCL 0.4 MG CAP PO ONE (04:00)
[2024-09-21 08:02] VITALS: BMI 42.7
[2024-09-21] MEDS: CEFTRIAXONE 1 GM in DEXTROSE 5%-WATER - 50 ML IVPB SCH (09:49)
[2024-09-21] MEDS: ENOXAPARIN NA (PORCINE) 40 MG/0.4 ML DISP.SYRIN SQ SCH (09:50)
[2024-09-21] MEDS: POLYETHYLENE GLYCOL (HEALTHYLAX) 3350 17 GM PACKET PO SCH (10:20)
[2024-09-21 11:32] LABS: ABSOLUTE IMMATURE GRANULOCYTES 0.01 x10^3/uL (0.0-0.031); BASOPHILS # 0.03 x10^3/uL (0.01-0.08); EOSINOPHILS # 0.15 x10^3/uL (0.04-0.54); HEMATOCRIT 42.7 % (40.1-51.0); HEMOGLOBIN 13.9 g/dL (13.7-17.5); MCHC 32.6 g/dl (32.3-36.5); MEAN CELL VOLUME 90.1 fl (79.0-92.2); MEAN PLT VOLUME 10.1 fl (9.4-12.4); MONOCYTE # 0.38 x10^3/uL (0.30-0.82); MONOCYTE % 7.5 % (5.3-12.2); PLATELET COUNT 212 x10^3/uL (163-337); RDW 13.9 % (12.0-15.6)
[2024-09-21 11:39] LABS: INR 1.12 (0.83-1.09); PROTHROMBIN TIME (PATIENT) 12.2 SEC (9.7-13.0)
[2024-09-21 11:52] LABS: POTASSIUM 4.1 mmol/L (3.5-5.1)
[2024-09-21 11:54] LABS: ALBUMIN 3.6 g/dl (3.4-5.0)
[2024-09-21 11:55] LABS: CALCIUM 9.3 mg/dL (8.5-10.1)
[2024-09-21 11:56] LABS: BLOOD UREA NITROGEN 9.8 mg/dL (7-18)
[2024-09-21 11:59] LABS: BILIRUBIN,TOTAL 2.8 mg/dL (0.2-1)
[2024-09-21 12:00] LABS: TOT PROT 6.5 g/dl (6.4-8.2)
[2024-09-21] MEDS ORDERED: INSULIN ASPART SLIDING SCALE (NOVOLOG) 1 VIAL SQ ONE (17:18)
[2024-09-21] MEDS: KETOROLAC TROMETHAMINE 15 MG/ML VIAL IVPUSH PRN (21:42)
[2024-09-22 08:34] LABS: HEMATOCRIT 41.5 % (40.1-51.0); HEMOGLOBIN 13.6 g/dL (13.7-17.5); MCHC 32.8 g/dl (32.3-36.5); MEAN CELL VOLUME 89.1 fl (79.0-92.2); MEAN PLT VOLUME 10.5 fl (9.4-12.4); PLATELET COUNT 202 x10^3/uL (163-337)
[2024-09-22 08:41] LABS: INR 1.12 (0.83-1.09); PROTHROMBIN TIME (PATIENT) 12.3 SEC (9.7-13.0)
[2024-09-22 08:56] LABS: POTASSIUM 3.7 mmol/L (3.5-5.1)
[2024-09-22 08:59] LABS: CALCIUM 8.8 mg/dL (8.5-10.1)
[2024-09-22 09:00] LABS: ALBUMIN 3.5 g/dl (3.4-5.0); BLOOD UREA NITROGEN 7.9 mg/dL (7-18)
[2024-09-22 09:03] LABS: CREATININE 0.9 mg/dL (0.55-1.3)
[2024-09-22 09:05] LABS: TOT PROT 6.2 g/dl (6.4-8.2)
[2024-09-22 09:09] LABS: BILIRUBIN,TOTAL 5.1 mg/dL (0.2-1)
[2024-09-22] MEDS ORDERED: PANTOPRAZOLE SODIUM 40 MG in SODIUM CHLORIDE 100 ML IVPB SCH (10:45)
[2024-09-22] MEDS: PANTOPRAZOLE SODIUM 40 MG VIAL IVPUSH SCH (11:42)
[2024-09-22] MEDS: SODIUM CHLORIDE 1,000 ML IV SCH (13:31)
[2024-09-22 19:16] LABS: HEPATITIS B SURF AG NON-MATERN NON-REACTIVE (NONREACTIVE)
[2024-09-23 08:07] LABS: ABSOLUTE IMMATURE GRANULOCYTES 0.07 x10^3/uL (0.0-0.031); BASOPHILS # 0.02 x10^3/uL (0.01-0.08); EOSINOPHIL % 1.6 % (0.8-7.0); HEMATOCRIT 40.7 % (40.1-51.0); HEMOGLOBIN 13.6 g/dL (13.7-17.5); MCHC 33.4 g/dl (32.3-36.5); MEAN CELL VOLUME 87.9 fl (79.0-92.2); MEAN PLT VOLUME 10.2 fl (9.4-12.4); MONOCYTE # 0.39 x10^3/uL (0.30-0.82); MONOCYTE % 6.2 % (5.3-12.2); PLATELET COUNT 206 x10^3/uL (163-337); RDW 13.7 % (12.0-15.6)
[2024-09-23 08:30] LABS: ALBUMIN 3.5 g/dl (3.4-5.0); BLOOD UREA NITROGEN 7.8 mg/dL (7-18); CALCIUM 9.3 mg/dL (8.5-10.1)
[2024-09-23 08:33] LABS: CREATININE 0.9 mg/dL (0.55-1.3)
[2024-09-23 08:35] LABS: TOT PROT 6.6 g/dl (6.4-8.2)
[2024-09-23 08:39] LABS: BILIRUBIN,TOTAL 2.7 mg/dL (0.2-1)
[2024-09-23 09:16] LABS: INR 1.23 (0.83-1.09); PROTHROMBIN TIME (PATIENT) 13.5 SEC (9.7-13.0)
[2024-09-23] MEDS ORDERED: MIDAZOLAM HCL 2 MG/2 ML SINGLE DOSE VIAL ONE (13:16)
[2024-09-23] MEDS: INDOMETHACIN 50 MG RECTAL SUPPOSITORY PR ONE (14:00)
[2024-09-23] MEDS: LACTATED RINGERS SOLUTION 1,000 ML/1,000 ML INFUS.BAG IV SCH (15:18)
[2024-09-24 09:46] LABS: ABSOLUTE IMMATURE GRANULOCYTES 0.08 x10^3/uL (0.0-0.031); BASOPHILS # 0.04 x10^3/uL (0.01-0.08); EOSINOPHIL % 2.3 % (0.8-7.0); EOSINOPHILS # 0.13 x10^3/uL (0.04-0.54); HEMATOCRIT 42.6 % (40.1-51.0); HEMOGLOBIN 14.1 g/dL (13.7-17.5); MCHC 33.1 g/dl (32.3-36.5); MEAN CELL VOLUME 89.1 fl (79.0-92.2); MEAN PLT VOLUME 10.5 fl (9.4-12.4); MONOCYTE # 0.34 x10^3/uL (0.30-0.82); MONOCYTE % 5.9 % (5.3-12.2); PLATELET COUNT 201 x10^3/uL (163-337); RDW 14.3 % (12.0-15.6)
[2024-09-24] MEDS: PANTOPRAZOLE 40 MG TABLET PO SCH (09:56)
[2024-09-24 10:06] LABS: POTASSIUM 3.8 mmol/L (3.5-5.1)
[2024-09-24 10:09] LABS: ALBUMIN 3.4 g/dl (3.4-5.0); BLOOD UREA NITROGEN 11.1 mg/dL (7-18); CALCIUM 9.4 mg/dL (8.5-10.1); MAGNESIUM 1.8 mg/dL (1.8-2.4)
[2024-09-24 10:13] LABS: TOT PROT 6.4 g/dl (6.4-8.2)
[2024-09-24 10:14] LABS: BILIRUBIN,TOTAL 1.3 mg/dL (0.2-1)
[2024-09-24 13:26] VITALS: RESP 18
[2024-09-24 15:20] VITALS: BP 123/66; PULSE 62; TEMP 97.7
== END 2024-09-24 18:11 | disposition home or self-care (01) | DRG 282 ==
LOC: JER 22:49 → JERBED 09-21 01:56 → J8W 09-21 04:29
PROVIDERS: ADMIT Hospitalist; ATTEND Nurse Practitioner Family
PROC: BD41ZZZ Ultrasonography of Esophagus (ICD-10-PCS; 2024-09-23)
PROC: 0DJ08ZZ Inspection of Upper Intestinal Tract, Via Natural or Artificial Opening Endoscopic (ICD-10-PCS; principal; 2024-09-23 11:00)
DX: K85.10 Biliary acute pancreatitis without necrosis or infection (principal); A05.9 Bacterial foodborne intoxication, unspecified; R11.2 Nausea with vomiting, unspecified; R74.01 Elevation of levels of liver transaminase levels; K76.0 Fatty (change of) liver, not elsewhere classified
CPT/HCPCS: 36415; 74181-TC; 76705-TC; 80053; 80307; 81003; 83690; 83735; 85025; 85027; 85610; 86704; 86708; 86850; 86900; 86901; 87340; 87517; 93005; 93010; 99285-25